=== PATIENT | female | born 1960 ===

== ENCOUNTER 2021-06-27 19:46 | Emergency (ER) | payer SELFPAY ==
--- NOTE | 2021-06-27 21:11 | Emergency Department Report ---
ED General Adult HPI - General Chief complaint: Hyperglycemia Stated complaint: HIGH BLOOD SUGAR Time Seen by Provider: 06/27/21 21:06 Source: patient, family Mode of arrival: Ambulatory Limitations: Language Barrier - History of Present Illness Initial comments: Patient 61-year-old female with history of diabetes type 2 recently diagnosed with Covid. Patient states she is visiting her today and noted that her blood sugar was up after fingerstick check. Blood sugar was 378 at the time. Blood sugar was 238 upon check-in at triage. Patient denies fevers, chills, dysuria frequency urgency or hematuria. Patient is alert oriented x3 and ama tory with steady gait there is no nausea no vomiting no fever no chills no dizziness no lightheadedness. Patient has all prescribed medications in her possession of glipizide Metformin is primary treatment for diabetes, patient has Z-Gene steroids and NSAIDs as prescribed for Covid symptom management. Patient appears with no acute distress at this time. - Related Data Allergies Allergy/AdvReac Type Severity Reaction Status Date / Time No Known Allergies Allergy Unverified 06/27/21 20:49 ED Review of Systems ROS: Stated complaint: HIGH BLOOD SUGAR Other details as noted in HPI Constitutional: denies: chills, fever Eyes: denies: eye pain, eye discharge, vision change ENT: denies: ear pain, throat pain Respiratory: denies: cough, shortness of breath, wheezing Cardiovascular: denies: chest pain, palpitations Endocrine: no symptoms reported Gastrointestinal: denies: abdominal pain, nausea, diarrhea Genitourinary: denies: urgency, dysuria, discharge Musculoskeletal: denies: back pain, joint swelling, arthralgia Skin: denies: rash, lesions Neurological: denies: headache, weakness, paresthesias Psychiatric: denies: anxiety, depression Hematological/Lymphatic: denies: easy bleeding, easy bruising ED Past Medical Hx - Past Medical History Previous Medical History?: Yes Hx Diabetes: Yes - Surgical History Hx Appendectomy: Yes ED Physical Exam - General Limitations: Language Barrier General appearance: alert, in no apparent distress - Head Head exam: Present: atraumatic, normocephalic - Eye Eye exam: Present: normal appearance, EOMI Pupils: Present: normal accommodation - ENT ENT exam: Present: mucous membranes moist - Neck Neck exam: Present: normal inspection - Respiratory Respiratory exam: Present: normal lung sounds bilaterally. Absent: respiratory distress, wheezes, rales, rhonchi, stridor, chest wall tenderness - Cardiovascular Cardiovascular Exam: Present: regular rate, normal rhythm, normal heart sounds. Absent: systolic murmur, diastolic murmur, rubs, gallop - GI/Abdominal GI/Abdominal exam: Present: soft, normal bowel sounds. Absent: distended, tenderness, guarding, rebound, rigid, bruit, hernia - Rectal Rectal exam: Present: deferred - Extremities Exam Extremities exam: Present: normal inspection, full ROM, normal capillary refill. Absent: tenderness - Back Exam Back exam: Present: normal inspection, full ROM. Absent: CVA tenderness (R), CVA tenderness (L) - Neurological Exam Neurological exam: Present: alert, oriented X3, CN II-XII intact, normal gait, reflexes normal. Absent: motor sensory deficit - Expanded Neurological Exam Expanded Patient oriented to: Present: person, place, time Speech: Present: fluid speech Motor strength exam: RUE: 5, LUE: 5, RLE: 5, LLE: 5 Best Eye Response ([place]): (4) open spontaneously Best Motor Response ([place]): (6) obeys commands Best Verbal Response ([place]): (5) oriented Tito Total: 15 - Psychiatric Psychiatric exam: Present: normal affect, normal mood - Skin Skin exam: Present: warm, dry, intact, normal color. Absent: rash ED Course Vital Signs 06/27/21 06/27/21 06/27/21 20:43 20:44 20:45 Temperature 99.4 F Pulse Rate 70 73 71 Respiratory 18 17 Rate Blood Pressure 136/58 142/64 O2 Sat by Pulse 98 98 98 Oximetry ED Medical Decision Making - Lab Data Result diagrams: 06/27/21 21:12 06/27/21 21:12 Labs 06/27/21 06/27/21 06/27/21 20:53 21:12 21:12 WBC 4.5 RBC 4.09 Hgb 12.7 Hct 37.9 MCV 93 MCH 31 MCHC 34 RDW 12.7 L Plt Count 235 Lymph % (Auto) 11.7 L [place] % (Auto) 1.5 Eos % (Auto) 0.0 Baso % (Auto) 0.2 Lymph # (Auto) 0.5 L [place] # (Auto) 0.1 Eos # (Auto) 0.0 Baso # (Auto) 0.0 Seg Neutrophils % 86.6 H Seg Neutrophils # 3.9 Sodium 133 L Potassium 4.7 Chloride 98.1 Carbon Dioxide 23 Anion Gap 17 BUN 11 Creatinine 0.7 Estimated GFR > 60 BUN/Creatinine Ratio 16 Glucose 247 H POC Glucose 238 H Calcium 8.7 - Medical Decision Making Chemistry confirmation of glucose 247 plan DC to home, continue to hydrate, follow-up with your primary care doctor in 2 to 3 days. Continue to take all medications as prescribed. Patient verbalized agreement and understanding of discharge plan. Patient's adult daughter used as brick machine operator for this case which is reasonable. Patient DC'd at this time in stable condition. Critical care attestation.: If time is entered above; I have spent that time in minutes in the direct care of this critically ill patient, excluding procedure time. 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 Return to emergency should symptoms worsen. Referrals: PRIMARY CARE, [Primary Care Provider] - 3-5 Days Forms: Work/School Release Form(ED) Time of Disposition: 22:40
[2021-06-27 21:34] LABS: Basophils % (Auto) 0.2 % (0.0-1.8); Hematocrit 37.9 % (30.3-42.9); Hemoglobin 12.7 gm/dl (10.1-14.3); Lymphocytes # (Auto) 0.5 K/mm3 (1.2-5.4); Lymphocytes % (Auto) 11.7 % (13.4-35.0); Mean Corpuscular HGB Conc 34 % (30-34); Mean Corpuscular Volume 93 fl (79-97); Monocytes # (Auto) 0.1 K/mm3 (0.0-0.8); Monocytes % (Auto) 1.5 % (0.0-7.3); Platelet Count 235 K/mm3 (140-440); Red Blood Count 4.09 M/mm3 (3.65-5.03); Red Cell Distribution Width 12.7 % (13.2-15.2)
[2021-06-27 21:48] LABS: Blood Urea Nitrogen 11 mg/dL (7-17); Calcium 8.7 mg/dL (8.4-10.2); Hemolysis Index 10
[2021-06-27 21:49] LABS: BUN/Creatinine Ratio 16
[2021-06-27 22:20] VITALS: BP 142/64
== END 2021-06-27 23:20 | disposition home or self-care (01) ==
LOC: ED 19:46
DX: E11.65 Type 2 diabetes mellitus with hyperglycemia (principal); Z98.890 Other specified postprocedural states
CPT/HCPCS: 36415; 80048; 82962; 85025; 99283

== ENCOUNTER 2021-07-05 17:36 | Emergency (ER) | payer SELFPAY ==
--- NOTE | 2021-07-05 18:49 | Emergency Department Report ---
ED General Adult HPI - General Chief complaint: Upper Respiratory Infection Stated complaint: POSS COVID/COUGH PUI?: Yes Time Seen by Provider: 07/05/21 18:26 Source: patient Mode of arrival: Ambulatory Limitations: Language Barrier - History of Present Illness Initial comments: 61-year-old Vietnamese female presents emerge department complaining of cough, congestion and coryza currently on 21-day quarantine for Covid. She reports no hemoptysis hematemesis hematochezia, but does have some feverish symptoms sensations. She reports no shortness of breath no exertional dyspnea and no mucus production. No history of asthma she is taking some [id number] medication with minimal improvement. He reports no diarrhea no abdominal pain. No headaches no fevers, chills, sweats - Related Data Previous Rx's Medication Instructions Recorded Last Taken Type Albuterol Mdi (or & Nicu Only) 2 puff IH QID PRN #1 inhalation 07/05/21 Unknown Rx [ProAir HFA Inhaler] Azithromycin [Zithromax] 500 mg PO QDAY #5 tablet 07/05/21 Unknown Rx Benzonatate [Tessalon Perles] 100 mg PO Q8HR #20 capsule 07/05/21 Unknown Rx Allergies Allergy/AdvReac Type Severity Reaction Status Date / Time No Known Allergies Allergy Verified 07/05/21 18:24 ED Review of Systems ROS: Stated complaint: POSS COVID/COUGH Other details as noted in HPI Comment: All other systems reviewed and negative ED Past Medical Hx - Past Medical History Hx Diabetes: Yes - Surgical History Hx Appendectomy: Yes - Medications Home Medications: Home Medications Medication Instructions Recorded Confirmed Last Taken Type Albuterol Mdi (or & Nicu Only) 2 puff IH QID PRN #1 inhalation 07/05/21 Unknown Rx [ProAir HFA Inhaler] Azithromycin [Zithromax] 500 mg PO QDAY #5 tablet 07/05/21 Unknown Rx Benzonatate [Tessalon Perles] 100 mg PO Q8HR #20 capsule 07/05/21 Unknown Rx ED Physical Exam - General Limitations: Language Barrier General appearance: alert, in no apparent distress - Head Head exam: Present: atraumatic, normocephalic - Eye Eye exam: Present: normal appearance, PERRL, EOMI Pupils: Present: normal accommodation - ENT ENT exam: Present: normal exam, normal orophraynx, mucous membranes moist - Neck Neck exam: Present: normal inspection - Respiratory Respiratory exam: Present: normal lung sounds bilaterally, rhonchi. Absent: respiratory distress - Cardiovascular Cardiovascular Exam: Present: regular rate, normal rhythm. Absent: systolic murmur, diastolic murmur, rubs, gallop - GI/Abdominal GI/Abdominal exam: Present: soft, normal bowel sounds - Extremities Exam Extremities exam: Present: normal inspection - Back Exam Back exam: Present: normal inspection - Neurological Exam Neurological exam: Present: alert, oriented X3 - Psychiatric Psychiatric exam: Present: normal affect, normal mood - Skin Skin exam: Present: warm, dry, intact, normal color. Absent: rash ED Medical Decision Making - Radiology Data Radiology results: report reviewed [address] [place] [address] XRay Report Signed Patient: JOANNA SINGER MR#: [id number] : 1960 Acct:[id number] Age/Sex: 61 / F ADM Date: 07/05/21 Loc: ED Attending Dr: Ordering Physician: SANCHEZ PAPPAS Date of Service: 07/05/21 Procedure(s): XR chest routine 2V Accession Number(s): [id number] cc: SANCHEZ PAPPAS Fluoro Time In Minutes: CHEST 2 VIEWS INDICATION / CLINICAL INFORMATION: cough and pain. FINDINGS: SUPPORT DEVICES: None. HEART / MEDIASTINUM: No significant abnormality. LUNGS / PLEURA: Multifocal airspace opacity scattered throughout both lungs with prominent consolidation of the right middle lobe concerning for multifocal pneumonia. Recommend repeat examination following treatment to ensure resolution. Signer Name: Guy Hunt MD Signed: 07/05/2021 7:10 PM Workstation Name: [id number] Transcribed By: ALIYA Dictated By: Guy Hunt MD Electronically Authenticated By: Guy Hunt MD Signed Date/Time: 07/05/211909 DD/ 06 TD/TT: Print Cancel - Medical Decision Making This patient presents to the emergency department with fever and lower respiratory symptoms concerning for viral syndrome including flu and COVID-19. Patient has suspicion and is for COVID-19 infection with sepsis secondary bilateral pneumonia. Differential diagnosis includes other viral causes of lower respiratory symptoms, other causes for more pneumonia, asthma, bronchitis. Patient is well-appearing with acceptable vitals, and the exception of age lacks comorbidities. She maintains a saturation of 94-95 with ambulation and maintains her saturation at rest as well. Currently does not meet the qualifications for admission. Joanna has a reassuring physical examination and is safe to be discharged home she already had a positive nasal swab for COVID about 2 weeks ago. Provide strict return precautions and instructions on self isolation/quarantine and anticipatory guidance. Critical care attestation.: If time is entered above; I have spent that time in minutes in the direct care of this critically ill patient, excluding procedure time. ED Disposition Clinical Impression: Person under investigation for COVID-19, Bilateral pneumonia Disposition: HOME / SELF CARE / HOMELESS Is pt being admited?: No Does the pt Need Aspirin: No Condition: Stable Instructions: Community-Acquired Pneumonia, Adult, Bacterial Pneumonia (ED) Prescriptions: Albuterol Mdi (or & Nicu Only) [ProAir HFA Inhaler] 2 puff IH QID PRN #1 inhalation PRN Reason: Shortness Of Breath Benzonatate [Tessalon Perles] 100 mg PO Q8HR #20 capsule Azithromycin [Zithromax] 500 mg PO QDAY #5 tablet Referrals: DEBORAH ALICIA MD [Staff Physician] - 3-5 Days
--- NOTE | 2021-07-05 19:15 | XRay Report ---
CHEST 2 VIEWS INDICATION / CLINICAL INFORMATION: cough and pain. FINDINGS: SUPPORT DEVICES: None. HEART / MEDIASTINUM: No significant abnormality. LUNGS / PLEURA: Multifocal airspace opacity scattered throughout both lungs with prominent consolidat ion of the right middle lobe concerning for multifocal pneumonia. Recommend repeat examination follow ing treatment to ensure resolution. Signer Name: Guy Hunt MD Signed: 07/05/2021 7:10 PM Workstation Name: [id number]
[2021-07-05] MEDS ORDERED: dexAMETHasone 4 MG/ML VIAL IM ONE (20:01)
[2021-07-05 21:38] VITALS: BP 128/59
== END 2021-07-05 21:32 | disposition home or self-care (01) ==
LOC: ED 17:36
DX: J18.9 Pneumonia, unspecified organism (principal)
CPT/HCPCS: 71046; 96372; 99283; J1100